=== PATIENT | male | born 1955 | race Hispanic/Latino ===

== ENCOUNTER 2021-07-06 10:42 | Emergency (ER) | payer MEDICARE ==
[~2021-07-06] VITALS: Ht 188 cm; Wt 106.6 kg
[2021-07-06] MEDS ORDERED: AMLODIPINE BESYL5 MG PO (11:36)
== END 2021-07-06 11:58 | disposition home or self-care (01) ==
LOC: ER 10:48
DX: I10 Essential (primary) hypertension (principal); G40.909 Epilepsy, unspecified, not intractable, without status epilepticus
CPT/HCPCS: 99283